=== PATIENT | female | born 1995 | race Caucasian/White ===

== ENCOUNTER 2017-03-28 20:05 | Emergency (ER) | payer SELFPAY ==
[2017-03-28 20:12] VITALS: BP 135/68; PULSE 81; TEMP 98.5; BMI 21.9
--- NOTE | 2017-03-28 20:28 | PDOC ---
History of Present Illness - General History Source: Patient Exam Limitations: No Limitations - History of Present Illness Initial Comments: 03/28/17 20:52 The patient is a 21 year old female, with no significant past medical history, who presents to the emergency department complaining of abdominal pain since earlier today. The patient reports her abdominal pain is located epigastrically. She describes her abdominal pain as if her stomach was on fire. The patient reports for the past three weeks she has been feeling as if her stomach is empty even when she is full. She reports associated nausea, but denies any vomiting, diarrhea, or constipation. Patient reports she has taken tums for her discomfort with no relief. Patient reports her pain is exacerbated after eating. Patient reports her last meal was earlier today. She denies any fever or chills. She denies any dysuria, hematuria, frequency, or urgency. She denies any chest pain, SOB, diaphoresis, or palpitations. She denies any recent travel or sick contacts. PAST MEDICAL HISTORY: no significant history PAST SURGICAL HISTORY: no significant history FAMILY HISTORY: no pertinent history SOCIAL HISTORY: Pt lives with family and is employed. MEDICATIONS: reviewed ALLERGIES: As per nursing notes PCP: Dr. Tobias Bhatt General: No fevers or chills, no weakness, no weight loss HEENT: No change in vision. No sore throat,. No ear pain CardioVascular: No chest pain or shortness of breath Respiratory: No cough, or wheezing. Gastrointestinal: Yes: +epigastric abdominal pain, +nausea, +emptiness in stomach after eating. No vomiting, diarrhea or constipation, No rectal bleeding Genitourinary: No dysuria, hematuria, or frequency Musculoskeletal: No joint or muscle pain or swelling Neurologic: No headache, vertigo, dizziness or loss of consciousness Psychiatric: No depression Skin: No rashes or easy bruising Endocrine: No increased thirst or abnormal weight change Allergic: no skin or latex allergy All other systems reviewed and normal General: Well-nourished well-developed individual, no acute distress HEENT: Throat: Normal, tonsils normal, no erythema or exudate Neck: Supple, no meningeal signs, no lymphadenopathy Eyes::Pupils equal reactive and round, extraocular motion intact Chest: Nontender to palpation Cardiac: S1-S2 normal, regular rate and rhythm, no murmurs rubs or gallops Respiratory: Lungs clear to auscultation bilateral Abdomen: Tenderness to palpation of the epigastrum. No tenderness to the RUQ. Soft, nondistended, normal bowel sounds. Extremities: Warm, dry, no cyanosis, clubbing, or edema Skin: No rashes Neuro: Alert and oriented x3, nonfocal exam, grossly intact, normal gait Psych: Normal mood and affect <Landon Mina - Last Filed: 03/28/17 21:09> - General History Source: Patient Exam Limitations: No Limitations - History of Present Illness Initial Comments: 03/28/17 21:43 A portion of this note was documented by scribe services under my direction. I have reviewed the details of the note, within reason, and agree with the documentation. The case summary and management plan written by me. Assessment and plan: This is a 21-year-old male who comes in complaining of withdrawal symptoms from opioids. Patient made the decision to stop his opioids and does not want to continue to take them but did not detox and now comes in withdrawal. Patient was started on clonidine and given a protocol for a clonidine detox at home. Patient does have a primary care doctor he can follow-up if needed. Patient also clinically was a little dehydrated so was hydrated and given anti- emetics as well. <Louisa Calderon I - Last Filed: 03/28/17 21:44> - General Chief Complaint: Pain Stated Complaint: ABD PAIN Time Seen by Provider: 03/28/17 20:28 Past History <Landon Mina - Last Filed: 03/28/17 21:09> - Past Medical History Psychiatric Problems: Yes (anxiety) Suicide Attempt (Hx): No - Immunization History Td Vaccination: Yes Immunization Up to Date: Yes - Psycho/Social/Smoking Cessation Hx Anxiety: Yes Suicidal Ideation: No Smoking Status: No Smoking History: Never smoked Have you smoked in the past 12 months: No Number of Cigarettes Smoked Daily: 0 Information on smoking cessation initiated: No Hx Alcohol Use: No Drug/Substance Use Hx: No Substance Use Type: None <Louisa Calderon I - Last Filed: 03/28/17 21:44> - Past Medical History Allergies/Adverse Reactions: Allergies Allergy/AdvReac Type Severity Reaction Status Date / Time potassium clavulanate Allergy Intermediate Rash Verified 03/28/17 20:09 [From Augmentin] amoxicillin trihydrate Allergy Verified 03/28/17 20:09 [From Augmentin] Home Medications: Ambulatory Orders Lansoprazole [Prevacid] 30 mg PO DAILY #14 capsule. 03/28/17 *Physical Exam - Vital Signs Last Vital Signs Temp Pulse Resp BP Pulse Ox 98.5 F 81 18 135/68 97 03/28/17 20:05 03/28/17 20:05 03/28/17 20:05 03/28/17 20:05 03/28/17 20:05 <Landon Mina - Last Filed: 03/28/17 21:09> - Vital Signs Last Vital Signs Temp Pulse Resp BP Pulse Ox 98.5 F 81 18 135/68 97 03/28/17 20:05 03/28/17 20:05 03/28/17 20:05 03/28/17 20:05 03/28/17 20:05 <Louisa Calderon I - Last Filed: 03/28/17 21:44> ED Treatment Course - Medications Given in the ED: ED Medications Discontinued Medications Generic Name Dose Route Start Last Admin Trade Name Freq PRN Reason Stop Dose Admin Al Hydroxide/Mg Hydroxide 30 ml 03/28/17 20:41 03/28/17 20:45 Mylanta Oral Suspension - PO 03/28/17 20:42 30 ml ONCE ONE Administration Famotidine 20 mg 03/28/17 20:40 03/28/17 20:45 Pepcid - PO 03/28/17 20:41 20 mg ONCE ONE Administration <Landon Mina - Last Filed: 03/28/17 21:09> *DC/Admit/Observation/Transfer - Attestations Scribe Attestion: 03/28/17 20:52 Documentation prepared by Landon Mina, acting as resident medical officer for Louisa Calderon MD. <Landon Mina - Last Filed: 03/28/17 21:09> <Louisa Calderon I - Last Filed: 03/28/17 21:44> Diagnosis at time of Disposition: Gastritis Qualifiers: Gastritis type: superficial Chronicity: acute Gastritis bleeding: without bleeding Qualified Code(s): K29.00 - Acute gastritis without bleeding - Discharge Dispostion Disposition: HOME Condition at time of disposition: Stable - Prescriptions Prescriptions: Lansoprazole [Prevacid] 30 mg PO DAILY #14 capsule.dr - Referrals Referrals: Tobias Bhatt MD [Primary Care Provider] - - Patient Instructions Additional Instructions: Take the Prevacid 1 tablet a day for the next 2 weeks. Return to the emergency department immediately with ANY new, persistent or worsening symptoms. Continue any medications as previously prescribed by your physician. You should follow up with your primary doctor as soon as possible regarding today's emergency department visit. . Please make sure your doctor reviews the results of your emergency evaluation. Thank you for coming to the Emergency Department today for your care. It was a pleasure to see you today. Please note that your evaluation is INCOMPLETE until you follow-up with your doctor.
[2017-03-28] MEDS ORDERED: FAMOTIDINE 20 MG TABLET PO ONE (20:40)
[2017-03-28] MEDS ORDERED: MAG HYDROX/AL HYDROX/SIMETH 30 ML UNIT-DOSE CUP PO ONE (20:41)
[2017-03-28] MEDS ORDERED: MAG HYDROX/AL HYDROX/SIMETH 30 ML UNIT-DOSE CUP ONE (20:43)
[2017-03-28] MEDS ORDERED: FAMOTIDINE 20 MG TABLET ONE (20:43)
== END 2017-03-28 21:26 | disposition home or self-care (01) ==
LOC: FER 20:05
DX: K29.00 Acute gastritis without bleeding (principal); F41.9 Anxiety disorder, unspecified
CPT/HCPCS: 99282-25

== ENCOUNTER 2017-04-21 15:45 | Emergency (ER) | payer OTHER ==
[2017-04-21 16:05] VITALS: BP 117/76; PULSE 87; TEMP 98.9; BMI 21.9
[2017-04-21 16:48] LABS: URINE APPEARANCE Clear; URINE BILIRUBIN Negative (NEGATIVE); URINE BLOOD Negative (NEGATIVE); URINE GLUCOSE (UA) Negative (NEGATIVE); URINE KETONE Negative (NEGATIVE); URINE LEUK ESTERASE Negative (NEGATIVE); URINE NITRITE Negative (NEGATIVE); URINE PROTEIN Negative (NEGATIVE); URINE UROBILINOGEN 0.2 (0.2-1.0)
[2017-04-21 16:50] LABS: URINE COLOR YELLOW
[2017-04-21 16:53] LABS: BASOPHIL 1.3 % (0-2.0); EOSINOPHIL 1.2 % (0-4.5); MCH 27.2 pg (25.7-33.7); MCHC 33.2 g/dl (32.0-36.0); MEAN CELL VOLUME 82.1 fl (80-96); MEAN PLT VOLUME 7.1 fl (7.5-11.1); NEUTROPHILS 65.3 % (42.8-82.8); PLATELET COUNT 265 K/MM3 (134-434); RDW 12.9 % (11.6-15.6); WHITE BLOOD COUNT 6.9 K/mm3 (4.0-10.8)
--- NOTE | 2017-04-21 17:01 | PDOC ---
History of Present Illness - General Chief Complaint: Chest Pain Stated Complaint: CHEST PAIN,SON,NAUSEA AND CONSTIPATION X A FEW DAY Time Seen by Provider: 04/21/17 16:01 - History of Present Illness Initial Comments: 04/21/17 16:58 22 F with no PMH presents with 1 year of intermittent chest tightness. Pt states that she feels a pressure in the middle of her chest. Denies SOB but often feels like her breath is restricted. The pain however is not worse with deep inspiration. It is not exertional. Pt denies F/C, denies cough. Denies leg swelling or h/o DVT. Not on OCPs, no recent travel/immobilization. Pt also endorses epigastric pain since 1 month ago. Pt was seen here and given PPI. She failed to f/u with PMD or GI as instructed and reports persistent burning pain. Denies lower abdominal pain. Denies vaginal bleeding/discharge. She denies headache and dizziness. She denies fever, chills, vomit, diarrhea. She denies dysuria, frequency, urgency and hematuria. Allergies: augmentin (anaphylaxis) Past surgical history: none reported Social history: social marijuana use. PCP - none Past History - Past Medical History Allergies/Adverse Reactions: Allergies Allergy/AdvReac Type Severity Reaction Status Date / Time potassium clavulanate Allergy Intermediate Rash Verified 04/21/17 15:55 [From Augmentin] amoxicillin trihydrate Allergy Verified 04/21/17 15:55 [From Augmentin] Home Medications: Ambulatory Orders Lansoprazole [Prevacid] 30 mg PO DAILY #14 capsule. 03/28/17 GI Disorders: Yes (GERD) Psychiatric Problems: Yes (anxiety) - Immunization History Td Vaccination: Yes Immunization Up to Date: Yes - Suicide/Smoking/Psychosocial Hx Smoking Status: No Smoking History: Never smoked Have you smoked in the past 12 months: No Number of Cigarettes Smoked Daily: 0 Information on smoking cessation initiated: No Hx Alcohol Use: No Drug/Substance Use Hx: No Substance Use Type: None Review of Systems - Review of Systems Comments:: 04/21/17 17:16 """GENERAL/CONSTITUTIONAL: No fever or chills. No weakness. HEAD, EYES, EARS, NOSE AND THROAT: No ear pain or discharge. No sore throat. CARDIOVASCULAR: (+) chest tightness RESPIRATORY: No cough, wheezing, or hemoptysis. GASTROINTESTINAL: (+) nausea, epigastric pain, No vomiting or diarrhea GENITOURINARY: No dysuria, frequency, or change in urination. MUSCULOSKELETAL: No joint or muscle swelling or pain. No neck or back pain. SKIN: No rash NEUROLOGIC: No headache, vertigo, loss of consciousness, or change in strength/ sensation. ENDOCRINE: No increased thirst. No abnormal weight change. HEMATOLOGIC/LYMPHATIC: No anemia, easy bleeding, or history of blood clots. ALLERGIC/IMMUNOLOGIC: No hives or skin allergy. """ *Physical Exam - Vital Signs Last Vital Signs Temp Pulse Resp BP Pulse Ox 98.9 F 87 18 117/76 100 04/21/17 15:46 04/21/17 15:46 04/21/17 15:46 04/21/17 15:46 04/21/17 15:46 - Physical Exam Comments: 04/21/17 17:17 """GENERAL: Awake, alert, and fully oriented, in no acute distress HEAD: No signs of trauma EYES: PERRLA, EOMI, sclera anicteric, conjunctiva clear ENT: Auricles normal inspection, hearing grossly normal, nares patent, oropharynx clear without exudates. Moist mucosa NECK: Nontender, no stepoffs, Normal ROM, supple, no lymphadenopathy, JVD, or masses LUNGS: Breath sounds equal, clear to auscultation bilaterally. No wheezes, and no crackles HEART: Regular rate and rhythm, normal S1 and S2, no murmurs, rubs or gallops ABDOMEN: Soft, nontender, normoactive bowel sounds. No guarding, no rebound. No masses EXTREMITIES: Normal range of motion, no edema. No clubbing or cyanosis. No cords, erythema, or tenderness NEUROLOGICAL: Cranial nerves II through XII intact. 5/5 strength and sensation in all extremities, Normal speech, normal gait SKIN: Warm, Dry, normal turgor, no rashes or lesions noted. """ Heart Score/ECG Review - History History: Slightly suspicious - Electrocardiogram EKG: Normal - Age Age: </= 45 - Risk Factors Based on the list above the patient has:: No risk factors known - Troponin Troponin: </= normal limit - Score Heart Score - Total: 0 - ECG Impressions Comment:: 04/21/17 17:24 NSR, no JET/STDs, no TWIs, intervals wnl, axis wnl ED Treatment Course - LABORATORY CBC & Chemistry Diagram: 04/21/17 16:40 04/21/17 16:40 - ADDITIONAL ORDERS Additional order review: Laboratory Results 04/21/17 04/21/17 04/21/17 16:40 16:40 16:40 Sodium 133 L Potassium 3.8 Chloride 105 Carbon Dioxide 24 Anion Gap 4 L BUN 21 H Creatinine 0.7 Creat Clearance w eGFR > 60 Random Glucose 87 Calcium 9.4 Total Bilirubin 0.5 AST 20 ALT 16 Alkaline Phosphatase 54 Creatine Kinase 107 Troponin I < 0.03 L Total Protein 8.3 Albumin 4.9 Lipase 43 Urine Color Urine Appearance Urine pH Ur Specific [place] Urine Protein Urine Glucose (UA) Urine Ketones Urine Blood Urine Nitrite Urine Bilirubin Urine Urobilinogen Urine HCG, Qual Negative 04/21/17 16:23 Sodium Potassium Chloride Carbon Dioxide Anion Gap BUN Creatinine Creat Clearance w eGFR Random Glucose Calcium Total Bilirubin AST ALT Alkaline Phosphatase Creatine Kinase Troponin I Total Protein Albumin Lipase Urine Color Yellow Urine Appearance Clear Urine pH 7.0 Ur Specific [place] 1.020 Urine Protein Negative Urine Glucose (UA) Negative Urine Ketones Negative Urine Blood Negative Urine Nitrite Negative Urine Bilirubin Negative Urine Urobilinogen 0.2 Urine HCG, Qual 04/21/17 16:40 RBC 5.17 MCV 82.1 MCHC 33.2 RDW 12.9 MPV 7.1 L Neutrophils % 65.3 Lymphocytes % 25.7 Monocytes % 6.5 Eosinophils % 1.2 Basophils % 1.3 - RADIOLOGY Radiology Studies Ordered: Category Date Time Status CHEST PA & LAT [RAD] Stat Radiology 04/21/17 16:23 Completed - Medications Given in the ED: ED Medications Discontinued Medications Generic Name Dose Route Start Last Admin Trade Name Freq PRN Reason Stop Dose Admin Al Hydroxide/Mg Hydroxide 30 ml 04/21/17 17:46 04/21/17 17:58 Mylanta Oral Suspension - PO 04/21/17 17:47 30 ml ONCE ONE Administration Famotidine 40 mg 04/21/17 17:54 04/21/17 17:58 Pepcid - PO 04/21/17 17:55 40 mg ONCE ONE Administration Famotidine/Sodium Chloride 50 mls @ 100 mls/hr 04/21/17 17:46 04/21/17 17:58 Pepcid 20 Mg Premixed Ivpb - IVPB 04/21/17 18:15 Not Given ONCE ONE Medical Decision Making - Medical Decision Making 04/21/17 17:24 22 F with intermittent chest tightness x 1 year. Unconcerning for ACS given normal EKG. PE also unlikely as pt has PERC score of 0. Pain may be gastritis- related as pt also complains of epigastric burning. Also consider msk pain as it is reproducible with palpation. - Labs, trop - CXR - UA, UPT 04/21/17 18:25 CBC,CMP WBC 6.9 K/mm3 (4.0-10.8) 04/21/17 16:40 RBC 5.17 M/mm3 (3.60-5.2) 04/21/17 16:40 Hgb 14.1 GM/dl (10.7-15.3) 04/21/17 16:40 Hct 42.5 % (32.4-45.2) 04/21/17 16:40 MCV 82.1 fl (80-96) 04/21/17 16:40 MCH 27.2 pg (25.7-33.7) 04/21/17 16:40 MCHC 33.2 g/dl (32.0-36.0) 04/21/17 16:40 RDW 12.9 % (11.6-15.6) 04/21/17 16:40 Plt Count 265 K/MM3 (134-434) 04/21/17 16:40 MPV 7.1 fl (7.5-11.1) L 04/21/17 16:40 Neutrophils % 65.3 % (42.8-82.8) 04/21/17 16:40 Lymphocytes % 25.7 % (8-40) 04/21/17 16:40 Monocytes % 6.5 % (3.8-10.2) 04/21/17 16:40 Eosinophils % 1.2 % (0-4.5) 04/21/17 16:40 Basophils % 1.3 % (0-2.0) 04/21/17 16:40 Sodium 133 mmol/L (136-145) L 04/21/17 16:40 Potassium 3.8 mmol/L (3.5-5.1) 04/21/17 16:40 Chloride 105 mmol/L (98-107) 04/21/17 16:40 Carbon Dioxide 24 mmol/L (22-28) 04/21/17 16:40 Anion Gap 4 (8-16) L 04/21/17 16:40 BUN 21 mg/dl (7-18) H 04/21/17 16:40 Creatinine 0.7 mg/dl (0.6-1.3) 04/21/17 16:40 Creat Clearance w eGFR > 60 (>60) 04/21/17 16:40 Random Glucose 87 mg/dl (74-106) 04/21/17 16:40 Calcium 9.4 mg/dl (8.4-10.2) 04/21/17 16:40 Total Bilirubin 0.5 mg/dl (0.2-1.0) 04/21/17 16:40 AST 20 U/L (10-42) 04/21/17 16:40 ALT 16 U/L (10-40) 04/21/17 16:40 Alkaline Phosphatase 54 U/L (32-92) 04/21/17 16:40 Creatine Kinase 107 IU/L (26-192) 04/21/17 16:40 Troponin I < 0.03 ng/ml (0.03-0.50) L 04/21/17 16:40 Total Protein 8.3 g/dl (6.4-8.3) 04/21/17 16:40 Albumin 4.9 g/dl (3.5-5.0) 04/21/17 16:40 Lipase 43 U/L (22-51) 04/21/17 16:40 EKG normal, CXR clear UA unremarkable, UPT negative. Vitals normal. Pt reassessed, feels improvement with GI meds. Stable for DC with GI f/u. *DC/Admit/Observation/Transfer Diagnosis at time of Disposition: Chest tightness or pressure - Discharge Dispostion Disposition: HOME Condition at time of disposition: Stable - Referrals Referrals: Niels De Santiago MD [Staff Physician] - Ruth Whelan MD [Staff Physician] - - Patient Instructions Printed Discharge Instructions: DI for Atypical Chest Pain Additional Instructions: Please follow up with a ophthalmic technician to have your abdominal pain further evaluated. You need an endoscopy. You should also see a primary care doctor for follow up regarding your chest pain. Although your bloodwork, EKG, and chest X ray were normal today, we cannot rule out all lung or heart problems. You will need follow up with a primary care doctor for further testing. Call the numbers provided to make appointments with our clinics. If you experience worsening pain, shortness of breath, or any other concerning symptoms, return to the ER immediately. - Attestations Physician Attestion: 04/21/17 18:31 I, Dr. Epifanio Jama MD, attest that this document has been prepared under my direction and personally reviewed by me in its entirety. I further attest, that it accurately reflects all work, treatment, procedures and medical decision -making performed by me.
[2017-04-21 17:06] LABS: ALBUMIN 4.9 g/dl (3.5-5.0); ALK PHOS 54 U/L (32-92); ANION GAP 4 (8-16); BILIRUBIN,TOTAL 0.5 mg/dl (0.2-1.0); CALCIUM 9.4 mg/dl (8.4-10.2); CO2 24 mmol/L (22-28); CREATININE 0.7 mg/dl (0.6-1.3); GLUCOSE,RANDOM 87 mg/dl (74-106); SGOT/AST 20 U/L (10-42); SGPT/ALT 16 U/L (10-40); TOT PROT 8.3 g/dl (6.4-8.3)
[2017-04-21 17:15] LABS: TROPONIN I (DFP) < 0.03 ng/ml (0.03-0.50)
[2017-04-21 17:30] LABS: CPK 107 IU/L (26-192)
[2017-04-21] MEDS ORDERED: FAMOTIDINE 20 MG/50 ML IVPB 50 ML IVPB ONE ×2 (17:46→17:52)
[2017-04-21] MEDS ORDERED: MAG HYDROX/AL HYDROX/SIMETH 30 ML UNIT-DOSE CUP PO ONE (17:46)
[2017-04-21] MEDS ORDERED: MAG HYDROX/AL HYDROX/SIMETH 30 ML UNIT-DOSE CUP ONE (17:52)
[2017-04-21] MEDS ORDERED: FAMOTIDINE 20 MG TABLET PO ONE (17:54)
[2017-04-21] MEDS ORDERED: FAMOTIDINE 20 MG TABLET ONE (17:54)
--- NOTE | 2017-04-22 11:44 | EKG ---
Test Reason : Blood Pressure : / mmHG Vent. Rate : 075 BPM Atrial Rate : 075 BPM P-R Int : 146 ms QRS Dur : 092 ms QT Int : 374 ms P-R-T Axes : 055 080 063 degrees QTc Int : 417 ms SINUS RHYTHM WITH MARKED SINUS ARRHYTHMIA NONSPECIFIC T WAVE ABNORMALITY NO PREVIOUS ECGS AVAILABLE Confirmed by FRANCISCO CASTILLO MD ([id number]) on 04/22/2017 11:44:36 AM Referred By: DR BURGESS Confirmed By:FRANCISCO CASTILLO MD
== END 2017-04-21 18:41 | disposition home or self-care (01) ==
LOC: FER 15:45
DX: R07.89 Other chest pain (principal); K21.9 Gastro-esophageal reflux disease without esophagitis; F41.9 Anxiety disorder, unspecified
CPT/HCPCS: 36415; 71020-TC; 80053; 81003; 83690; 84443; 84484; 84703; 85025; 93005; 99283-25

== ENCOUNTER 2018-05-29 16:10 | Emergency (ER) | payer OTHER ==
[2018-05-29] MEDS ORDERED: AZITHROMYCIN 500 MG TABLET PO ONE (16:43)
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
[2018-05-29 16:56] VITALS: BP 120/80; PULSE 62; TEMP 98.3; BMI 23.2
[2018-05-29] MEDS ORDERED: FLUCONAZOLE 100 MG TABLET (UD) PO ONE (17:13)
[2018-05-29] MEDS ORDERED: HIV POST EXPOSURE PROPHYLAXIS KIT NR ONE (17:29)
[2018-05-29] MEDS ORDERED: HIV POST EXPOSURE PROPHYLAXIS KIT PO ONE (17:30)
[2018-05-29 17:44] LABS: URINE APPEARANCE Slightly; URINE BILIRUBIN Negative (NEGATIVE); URINE COLOR Dark; URINE GLUCOSE (UA) Negative (NEGATIVE); URINE KETONE 2+ (NEGATIVE); URINE LEUK ESTERASE 1+ (NEGATIVE); URINE NITRITE Positive (NEGATIVE); URINE PROTEIN Trace (NEGATIVE); URINE UROBILINOGEN 0.2 (0.2-1.0)
[2018-05-29] MEDS ORDERED: FLUCONAZOLE 150 MG TABLET PO ONE (17:51)
[2018-05-29] MEDS ORDERED: FLUCONAZOLE 50 MG TABLET PO ONE (17:51)
[2018-05-29] MEDS ORDERED: AZITHROMYCIN 200 MG/5 ML BOTTLE ONE (17:51)
[2018-05-29] MEDS ORDERED: AZITHROMYCIN 1 GM PACKET ONE (17:53)
[2018-05-29 17:55] LABS: ALBUMIN 4.5 g/dl (3.5-5.0); ALK PHOS 67 U/L (32-92); ANION GAP 9 MMOL/L (8-16); BILIRUBIN,TOTAL 0.3 mg/dl (0.2-1.0); BLOOD UREA NITROGEN 11 mg/dl (7-18); CALCIUM 9.2 mg/dl (8.4-10.2); CHLORIDE 101 mmol/L (98-107); CO2 25 mmol/L (22-28); CREATININE 0.7 mg/dl (0.6-1.3); GLUCOSE,RANDOM 107 mg/dl (74-106); POTASSIUM 3.4 mmol/L (3.5-5.1); SGOT/AST 22 U/L (10-42); SGPT/ALT 18 U/L (10-40); SODIUM 135 mmol/L (136-145); TOT PROT 7.8 g/dl (6.4-8.3)
[2018-05-29 17:57] LABS: PHOSPHOROUS 3.4 mg/dl (2.5-4.6); URIC ACID 3.2 mg/dl (2.6-7.2)
[2018-05-29 17:57] LABS: BASO % 0.4 % (0-2.0); EOS % 1.2 % (0-4.5); HEMATOCRIT 41.3 % (32.4-45.2); HEMOGLOBIN 13.4 GM/dl (10.7-15.3); LYMPH % 28.2 % (8-40); MCH 26.8 pg (25.7-33.7); MCHC 32.5 g/dl (32.0-36.0); MEAN CELL VOLUME 82.5 fl (80-96); MEAN PLT VOLUME 7.6 fl (7.5-11.1); MONO % 6.4 % (3.8-10.2); NEUT % 63.8 % (42.8-82.8); PLATELET COUNT 313 K/MM3 (134-434); RBC 5.01 M/mm3 (3.60-5.2); RDW 12.9 % (11.6-15.6); WHITE BLOOD COUNT 6.2 K/mm3 (4.0-10.8)
[2018-05-29 18:18] LABS: EPI CELLS FEW /HPF; URINE WBC 20-40 (0-5)
[2018-05-29 18:19] LABS: CALCIUM OXALATE CRYSTALS FEW /hpf (NONE SEEN); URINE BACTERIA 4+ /hpf (NEGATIVE)
[2018-05-29 20:18] LABS: COCAINE, UR NEGATIVE ng/ml (CUTOFF=300); METHADONE, UR NEGATIVE ng/ml (CUTOFF=300); OPIATES, URI NEGATIVE ng/ml (CUTOFF=300); PHENCYCLIDINE,URINE NEGATIVE ng/ml (CUTOFF=25); URINE BARBITURATES NEGATIVE ng/ml (CUTOFF=200)
[2018-05-29 20:35] LABS: URINE AMPHETAMINES POSITIVE ng/ml (CUTOFF=500); URINE BENZODIAZEPINES POSITIVE ng/ml (CUTOFF=200)
[2018-05-30 08:07] LABS: HBsAG SCREEN Negative (Negative)
[2018-05-30 12:13] LABS: RPR REACTIVE 1:4 (NONREACTIVE)
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
[2018-05-30 15:13] LABS: TREPONEMA ANTIBODY NON REACTIVE (NONREACTIVE)
== END 2018-05-29 18:36 | disposition home or self-care (01) ==
LOC: FER 16:10
DX: T76.21XA Adult sexual abuse, suspected, initial encounter (principal); F41.9 Anxiety disorder, unspecified; Z11.4 Encounter for screening for human immunodeficiency virus [HIV]; N39.0 Urinary tract infection, site not specified; B37.3 Candidiasis of vulva and vagina; K21.9 Gastro-esophageal reflux disease without esophagitis
CPT/HCPCS: 36415; 80053; 80307; 81003; 81015; 82465; 82977; 83615; 84100; 84460; 84550; 84703; 85025; 86317; 86593; 86706; 86780; 86803; 87086; 87110; 87186; 87340; 87389; 96372; 99282-25

== ENCOUNTER 2018-06-10 14:33 | Emergency (ER) | payer OTHER ==
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
[2018-06-10 15:14] VITALS: BP 122/73; PULSE 85; TEMP 98.6; BMI 23.2
[2018-06-10] MEDS ORDERED: predniSONE 20 MG TABLET (UD) PO ONE (15:15)
[2018-06-10] MEDS ORDERED: predniSONE 20 MG TABLET (UD) ONE (15:28)
[2018-06-10] MEDS ORDERED: diphenhydrAMINE HCL 50 MG CAPSULE PO ONE (15:29)
[2018-06-10] MEDS ORDERED: diphenhydrAMINE HCL 25 MG CAPSULE (FP) PO ONE (15:30)
--- NOTE | 2018-06-10 15:39 | PDOC ---
Attending Attestation - Resident Resident Name: Darya Veronica - ED Attending Attestation I have performed the following: I have examined & evaluated the patient, The case was reviewed & discussed with the resident, I agree w/resident's findings & plan, Exceptions are as noted - HPI HPI: 06/10/18 15:33 23 F with no PMH presents to ED with rash to hands and chest. Pt states that 2 days ago she first noticed the rash. It is itchy, not painful. No vesicles or pustules. Pt states that she took benadryl last night, with slight improvement in the rash. Pt denies any F/C. Denies oral lesions. Of note, pt just completed a course of bactrim for UTI, and is currently on isentress and truvada for HIV post-exposure ppx. No new soaps/detergents/clothes, no new foods. - Physicial Exam PE: 06/10/18 15:37 "GENERAL: Awake, alert, and fully oriented, in no acute distress. HEAD: No signs of trauma EYES: PERRLA, EOMI, sclera anicteric, conjunctiva clear ENT: Auricles normal inspection, hearing grossly normal, nares patent, oropharynx clear without exudates. Moist mucosa NECK: Nontender, no stepoffs, Normal ROM, supple, no lymphadenopathy, JVD, or masses LUNGS: Breath sounds equal, clear to auscultation bilaterally. No wheezes, and no crackles HEART: Regular rate and rhythm, normal S1 and S2, no murmurs, rubs or gallops ABDOMEN: Soft, nontender, normoactive bowel sounds. No guarding, no rebound. No masses EXTREMITIES: Normal range of motion, no edema. No clubbing or cyanosis. No cords, erythema, or tenderness NEUROLOGICAL: Cranial nerves II through XII intact. 5/5 strength and sensation in all extremities, Normal speech, normal gait, normal cerebellar function SKIN: + morbilliform rash to dorsum of bilateral hands and chest, no vesicles, no pustules, no oral mucosal lesions, no palmar lesions - Medical Decision Making 06/10/18 15:39 23 F with rash to hands and chest. Likely allergic reaction. Drug reaction possible, though pt has been on meds for 2 weeks now. - Steroids - F/u derm
== END 2018-06-10 15:54 | disposition home or self-care (01) ==
LOC: FER 14:33 → SUPCPDRO 14:33 → FER 15:54
DX: R21 Rash and other nonspecific skin eruption (principal); K21.9 Gastro-esophageal reflux disease without esophagitis; F41.9 Anxiety disorder, unspecified
CPT/HCPCS: 36415; 87389; 99282-25

== ENCOUNTER 2018-09-17 19:25 | Emergency (ER) | payer OTHER ==
[2018-09-17 19:36] VITALS: BP 137/77; PULSE 76; TEMP 98.5; BMI 22.8
--- NOTE | 2018-09-17 20:00 | PDOC ---
History of Present Illness - History of Present Illness Initial Comments: This patient is a 23 year old female with PMHx of allergies to augmentin, clindamycin, who presents s/p allergic reaction. Patient states that she had a sore throat and went to see the doctor who tested her for strep and stated that it came back negative. He gave her antibiotics (Clinda) which cause her to break out in a rash on her chest. She states that she forgot that she was allergic to clinda. She states that she took Bendryl which helped. Denies any difficulty breathing, throat swelling. <Nadya Bray - Last Filed: 09/17/18 20:30> <Darya Anderson - Last Filed: 09/18/18 01:09> - General Chief Complaint: Allergic Reaction Stated Complaint: ALLERGIC REACTION Time Seen by Provider: 09/17/18 19:29 Past History <Nadya Bray - Last Filed: 09/17/18 20:30> - Past Medical History COPD: No GI Disorders: Yes (GERD) Psychiatric Problems: Yes (anxiety) - Immunization History Td Vaccination: Yes Immunization Up to Date: Yes - Suicide/Smoking/Psychosocial Hx Smoking Status: No Smoking History: Never smoked Have you smoked in the past 12 months: No Number of Cigarettes Smoked Daily: 0 Hx Alcohol Use: Yes Drug/Substance Use Hx: No Substance Use Type: None <Darya Anderson - Last Filed: 09/18/18 01:09> - Past Medical History Allergies/Adverse Reactions: Allergies Allergy/AdvReac Type Severity Reaction Status Date / Time potassium clavulanate Allergy Intermediate Rash Verified 09/17/18 19:28 [From Augmentin] clindamycin Allergy Mild Rash Verified 09/17/18 19:28 amoxicillin trihydrate Allergy Verified 09/17/18 19:28 [From Augmentin] Home Medications: Ambulatory Orders Clindamycin 09/17/18 predniSONE [Deltasone -] 40 mg PO DAILY #8 tablet 09/17/18 Review of Systems - Review of Systems Comments:: GENERAL/CONSTITUTIONAL: No fever or chills. No weakness. HEAD, EYES, EARS, NOSE AND THROAT: No change in vision. No ear pain or discharge. No sore throat. CARDIOVASCULAR: No chest pain or shortness of breath. RESPIRATORY: No cough, wheezing, or hemoptysis. GASTROINTESTINAL: No nausea, vomiting, diarrhea or constipation. GENITOURINARY: No dysuria, frequency, or change in urination. MUSCULOSKELETAL: No joint or muscle swelling or pain. No neck or back pain. SKIN: +errythemtous rash on chest. NEUROLOGIC: No headache, vertigo, loss of consciousness, or change in strength/ sensation. ENDOCRINE: No increased thirst. No abnormal weight change. HEMATOLOGIC/LYMPHATIC: No anemia, easy bleeding, or history of blood clots. ALLERGIC/IMMUNOLOGIC: + hives 09/17/18 20:37 <Nadya Bray - Last Filed: 09/17/18 20:30> *Physical Exam - Vital Signs Last Vital Signs Temp Pulse Resp BP Pulse Ox 98.5 F 76 16 137/77 98 09/17/18 19:27 09/17/18 19:27 09/17/18 19:27 09/17/18 19:27 09/17/18 19:27 <Nadya Bray - Last Filed: 09/17/18 20:30> - Vital Signs Last Vital Signs Temp Pulse Resp BP Pulse Ox 98.5 F 76 16 137/77 98 09/17/18 19:27 09/17/18 19:27 09/17/18 19:27 09/17/18 19:27 09/17/18 19:27 - Physical Exam Comments: GENERAL: Awake, alert, and fully oriented, in no acute distress HEAD: No signs of trauma EYES: PERRLA, EOMI, sclera anicteric, conjunctiva clear ENT: Auricles normal inspection, hearing grossly normal, nares patent, oropharynx clear without exudates. Moist mucosa NECK: Normal ROM, supple, no lymphadenopathy, JVD, or masses EXTREMITIES: Normal range of motion, no edema. No clubbing or cyanosis. No cords, erythema, or tenderness NEUROLOGICAL: Cranial nerves II through XII grossly intact. Normal speech, normal gait. Motor and sensation intact SKIN: Warm, Dry, normal turgor. +Erythematous papular rash over the upper chest wall. <Darya Anderson - Last Filed: 09/18/18 01:09> Moderate Sedation - Procedure Monitoring Vital Signs: Procedure Monitoring Vital Signs Temperature 98.5 F 09/17/18 19:27 Pulse Rate 76 09/17/18 19:27 Respiratory Rate 16 09/17/18 19:27 Blood Pressure 137/77 09/17/18 19:27 O2 Sat by Pulse Oximetry (%) 98 09/17/18 19:27 <Nadya Bray - Last Filed: 09/17/18 20:30> - Procedure Monitoring Vital Signs: Procedure Monitoring Vital Signs Temperature 98.5 F 09/17/18 19:27 Pulse Rate 76 09/17/18 19:27 Respiratory Rate 16 09/17/18 19:27 Blood Pressure 137/77 09/17/18 19:27 O2 Sat by Pulse Oximetry (%) 98 09/17/18 19:27 <Darya Anderson - Last Filed: 09/18/18 01:09> ED Treatment Course - Medications Given in the ED: ED Medications Discontinued Medications Generic Name Dose Route Start Last Admin Trade Name Freq PRN Reason Stop Dose Admin Prednisone 40 mg 09/17/18 20:01 09/17/18 20:05 Deltasone - PO 09/17/18 20:02 40 mg ONCE ONE Administration <Nadya Bray - Last Filed: 09/17/18 20:30> Medical Decision Making - Medical Decision Making No airway involvement. Patient's throat pain has resolved, and there is no sign of infection (she also had a negative strep as an outpatient), so I counseled her to stop the antibiotic, and will not start a new one. Prednisone given, as she had a reaction to the clinda. Stable for DC home. <Darya Anderson - Last Filed: 09/18/18 01:09> *DC/Admit/Observation/Transfer - Attestations Scribe Attestion: 09/17/18 20:38 Documentation prepared by Nadya Bray, acting as medical records library professor for Darya Anderson MD. <Nadya Bray - Last Filed: 09/17/18 20:30> - Discharge Dispostion Decision to Admit order: No <Darya Anderson - Last Filed: 09/18/18 01:09> Diagnosis at time of Disposition: Allergic reaction caused by a drug Qualifiers: Encounter type: initial encounter Qualified Code(s): T78.40XA - Allergy, unspecified, initial encounter - Discharge Dispostion Disposition: HOME Condition at time of disposition: Stable - Prescriptions Prescriptions: predniSONE [Deltasone -] 40 mg PO DAILY #8 tablet - Referrals Referrals: Tobias Bhatt MD [Primary Care Provider] - - Patient Instructions Printed Discharge Instructions: DI for Adverse Drug Reaction -- Allergic - Post Discharge Activity
[2018-09-17] MEDS ORDERED: predniSONE 20 MG TABLET (UD) PO ONE (20:01)
[2018-09-17] MEDS ORDERED: predniSONE 20 MG TABLET (UD) ONE (20:04)
== END 2018-09-17 20:09 | disposition home or self-care (01) ==
LOC: FER 19:25
DX: T78.40XA Allergy, unspecified, initial encounter (principal)
CPT/HCPCS: 99282-25

== ENCOUNTER 2018-11-08 23:23 | Emergency (ER) | payer OTHER ==
[2018-11-08 23:30] VITALS: BP 110/71; PULSE 78; TEMP 98.1; BMI 24.2
--- NOTE | 2018-11-08 23:45 | PDOC ---
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 Bite is superficial without active bleeding. No other injury sustained. Patient has a history of GERD/anxiety; she also has ALLERGIES to Augmentin (airway closing) and clindamycin (rash). No history of poor wound healing, resistant organism colonization or infection, immunocompromise. Past History - Past Medical History Allergies/Adverse Reactions: Allergies Allergy/AdvReac Type Severity Reaction Status Date / Time potassium clavulanate Allergy Intermediate Rash Verified 09/17/18 19:28 [From Augmentin] clindamycin Allergy Mild Rash Verified 09/17/18 19:28 amoxicillin trihydrate Allergy Verified 09/17/18 19:28 [From Augmentin] Home Medications: Ambulatory Orders Ciprofloxacin [Cipro (Restricted To Id)] 500 mg PO Q12H #9 tablet 11/09/18 COPD: No GI Disorders: Yes (GERD) Psychiatric Problems: Yes (anxiety) - Immunization History Td Vaccination: Yes Immunization Up to Date: Yes - Suicide/Smoking/Psychosocial Hx Smoking Status: No Smoking History: Never smoked Have you smoked in the past 12 months: No Number of Cigarettes Smoked Daily: 0 Hx Alcohol Use: Yes Drug/Substance Use Hx: No Substance Use Type: None Review of Systems - Review of Systems Able to Perform ROS?: Yes Comments:: 12 point review of systems is negative except for what is noted in the history of present illness *Physical Exam - Vital Signs Last Vital Signs Temp Pulse Resp BP Pulse Ox 98.1 F 78 16 110/71 100 11/08/18 23:26 11/08/18 23:26 11/08/18 23:26 11/08/18 23:26 11/08/18 23:26 - Physical Exam Comments: GENERAL: Adult female, alert and oriented 3, in no acute distress HEAD: Normal with no signs of trauma. EYES: PERRLA, EOMI, sclera anicteric, conjunctiva clear. EXTREMITIES: Right hand -small (2 mm ) nonbleeding wound dorsal surface hand at the base of thumb , mildly tender without edema . No injury to fingers Otherwise, Normal range of motion, no edema. No clubbing or cyanosis. NEUROLOGICAL: Cranial nerves II through XII grossly intact. Normal speech. No focal neurological deficits. 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 Although it is not a full thickness, deep appearing puncture wound, because of the high percentage of infection in cat bites, treatment with antibiotics will be begun. Since patient has 2 previous ALLERGIES to antibiotics, single coverage with Cipro 500 mg twice a day for 5 days will be started (patient has no known ALLERGIES to fluoroquinolones) rather than double coverage with addition of metronidazole.. It was explained to the patient that she will not have coverage of anaerobic bacteria. She is strongly encouraged to return if she notices any increase in redness/swelling/pain purporting of coverage. Cipro 500 mg first dose given to the patient. Patient was observed for 40 minutes after administration of the medication. No evidence of anaphylactic reaction or rash noted. Patient will return to ER if ALLERGIC reaction occurs or if there is any evidence of progression of infection. Meanwhile, the patient is cleared for continuation of work tonight. *DC/Admit/Observation/Transfer Diagnosis at time of Disposition: Cat bite - wound - Discharge Dispostion Disposition: HOME Condition at time of disposition: Stable - Prescriptions Prescriptions: Ciprofloxacin [Cipro (Restricted To Id)] 500 mg PO Q12H #9 tablet - Referrals Referrals: Tobias Bhatt MD [Primary Care Provider] - - Patient Instructions Printed Discharge Instructions: DI for Animal Bites Additional Instructions: can return to work Cipro 500mg twice a day for 5 days return to ER immediately if you develop increased redness/swelling/pain in the area of wound or red streaking up arm Return to ER if lip/tongue swelling, difficulty breathing or swallowing occurs or if you have a rash after taking antibiotics - Post Discharge Activity Forms/Work/School Notes: Back to Work
[2018-11-09] MEDS ORDERED: CIPROFLOXACIN 500 MG TABLET (RESTRICTED TO ID) PO ONE (00:27)
[2018-11-09] MEDS ORDERED: CIPROFLOXACIN 250 MG TABLET (RESTRICTED TO ID) PO ONE (00:37)
== END 2018-11-09 01:11 | disposition home or self-care (01) ==
LOC: FER 23:23
DX: S61.451A Open bite of right hand, initial encounter (principal); W55.01XA Bitten by cat, initial encounter; Y93.89 Activity, other specified; Y92.531 Health care provider office as the place of occurrence of the external cause; Y99.0 Civilian activity done for income or pay
CPT/HCPCS: 99281-25

== ENCOUNTER 2019-07-09 02:40 | Emergency (ER) | payer OTHER ==
[2019-07-09 02:47] VITALS: BP 115/77; PULSE 85; TEMP 98.1; BMI 23.0
--- NOTE | 2019-07-09 03:09 | PDOC ---
History of Present Illness - General Chief Complaint: Lightheaded Stated Complaint: CONFUSION, VERTIGO SINCE OCTOBER Time Seen by Provider: 07/09/19 02:51 History Source: Patient Exam Limitations: No Limitations - History of Present Illness Initial Comments: 07/09/19 06:28 has felt confused x months Is this a multiple visit Asthma Patient?: No Timing/Duration: intermittent Severity: moderate Modifying Factors: worse with: movement, rest Associated Symptoms: denies: fever/chills, nausea/vomiting Past History - Past Medical History Allergies/Adverse Reactions: Allergies Allergy/AdvReac Type Severity Reaction Status Date / Time potassium clavulanate Allergy Intermediate Rash Verified 07/09/19 02:41 [From Augmentin] clindamycin Allergy Mild Rash Verified 07/09/19 02:41 amoxicillin trihydrate Allergy Verified 07/09/19 02:41 [From Augmentin] Home Medications: Ambulatory Orders NK [No Known Home Medication] 07/09/19 COPD: No GI Disorders: Yes (GERD) Psychiatric Problems: Yes (anxiety) - Immunization History Td Vaccination: Yes Immunization Up to Date: Yes - Psycho Social/Smoking Cessation Hx Smoking Status: No Smoking History: Former smoker Have you smoked in the past 12 months: Yes Number of Cigarettes Smoked Daily: 0 Information on smoking cessation initiated: No Hx Alcohol Use: Yes (SOCIAL) Drug/Substance Use Hx: No Substance Use Type: None Review of Systems - Review of Systems All Other Systems: Reviewed and Negative *Physical Exam - Vital Signs Last Vital Signs Temp Pulse Resp BP Pulse Ox 98.1 F 85 18 115/77 100 07/09/19 02:43 07/09/19 02:43 07/09/19 02:43 07/09/19 02:43 07/09/19 02:43 - Physical Exam General Appearance: Yes: Nourished, Appropriately Dressed HEENT: positive: Normal Voice Neck: negative: Lymphadenopathy (R), Lymphadenopathy (L) Respiratory/Chest: positive: Lungs Clear Cardiovascular: positive: Regular Rhythm Extremity: positive: Normal Capillary Refill Integumentary: positive: Normal Color Neurologic: positive: Fully Oriented Medical Decision Making - Medical Decision Making 07/09/19 06:30 non-specific out of body experience with intermittent dizziness s/p extesnive matias without elucidation of etiology no head trauma ? psych illness--hx of depression, off meds, no active SI, psychosis no acute interventions recommend psych fu Discharge - Discharge Information Problems reviewed: Yes Clinical Impression/Diagnosis: Dissociation Condition: Good Disposition: HOME - Follow up/Referral - Patient Discharge Instructions Additional Instructions: Please follow-up with your doctor - Post Discharge Activity
== END 2019-07-09 03:11 | disposition home or self-care (01) ==
LOC: FER 02:40
DX: F44.81 Dissociative identity disorder (principal); Z88.8 Allergy status to other drugs, medicaments and biological substances; Z87.891 Personal history of nicotine dependence; F41.9 Anxiety disorder, unspecified; K21.9 Gastro-esophageal reflux disease without esophagitis
CPT/HCPCS: 99281-25